=== PATIENT | female | born 1945 | race Caucasian/White ===

== ENCOUNTER 2023-11-17 20:28 | Emergency (ER) | payer MEDICARE, BC, SELFPAY ==
[2023-11-17 20:33] VITALS: BP 142/79; PULSE 89; RESP 20; TEMP 36.7; O2SAT 98; BMI 31.8
[2023-11-17] MEDS: BENZOCAINE 20 % SPRAY 1 EACH PO (20:55)
--- NOTE | 2023-11-17 21:24 | ED_ITS ---
HPI - Skin/Abscess/Foreign Bdy General Date Seen: 11/17/23 Chief complaint: Skin/Abscess/Foreign Body Stated complaint: Fishbone in throat, no diff breathing Time Seen by Provider: 11/17/23 20:31 Source: patient Mode of arrival: ambulatory Limitations: no limitations History of Present Illness HPI narrative: CC: Fish Bone In Throat pt. had some fish today. feels like something stuck on left side of throat. able to drink fluids. denies shortness of breath, fevers, n/v, diarrhea Patient is a very nice lady who presents here with the feeling of a foreign body in her left side of her throat, she was eating fish earlier this evening, and felt like something got stuck, she is able to swallow able to drink, did take some crackers earlier but the feeling process, she tells me it is not down lower, but feels almost as the left side of her throat. Related Data Home Medications Medication Instructions Recorded Confirmed aspirin 81 mg tablet,delayed 81 mg PO QDAY 09/09/23 11/17/23 release calcium carbonate 600 mg PO BID 09/09/23 11/17/23 glucosamine sulfate 500 mg tablet 500 mg PO QDAY 09/09/23 11/17/23 (Glucosamine) olmesartan 40 mg tablet 40 mg PO DAILY 09/09/23 11/17/23 rosuvastatin 10 mg tablet 10 mg PO QPM 09/09/23 11/17/23 Allergies Allergy/AdvReac Type Severity Reaction Status Date / Time amlodipine Allergy Mild Cough Verified 11/17/23 20:35 atenolol Allergy Mild Cough Verified 11/17/23 20:35 Review of Systems Status of ROS: Reports: 6 or more systems reviewed and unremarkable except as noted in History and below [facility] Medical History Elevated cholesterol ?E78.00 - Pure hypercholesterolemia, unspecified (ICD-10) Osteoarthritis of left knee ?M17.12 - Unilateral primary osteoarthritis, left knee (ICD-10) Skin cancer ?C44.90 - Unspecified malignant neoplasm of skin, unspecified (ICD-10) Depression ?F32.A - Depression, unspecified (ICD-10) Hypertension ?I10 - Essential (primary) hypertension (ICD-10) Surgical History History of cholecystectomy ?Z90.49 - Acquired absence of other specified parts of digestive tract (ICD- 10) History of phacoemulsification of cataract of right eye with intraocular lens implantation (04/14/20) ?Z98.41 - Cataract extraction status, right eye (ICD-10) ?Z96.1 - Presence of intraocular lens (ICD-10) History of phacoemulsification of cataract of left eye with intraocular lens implantation (04/28/20) ?Z98.42 - Cataract extraction status, left eye (ICD-10) ?Z96.1 - Presence of intraocular lens (ICD-10) Social History Smoking Status: Never smoker Second hand tobacco smoke exposure: No How often do you have a drink containing alcohol: never AUDIT-C Alcohol total score: 0 Non-prescribed substance use: denies use Exam Narrative: Exam Narrative: On examination, or throat is normal, scant tonsillar tissue is seen, little bit of redness, but not a lot there is definitely no blood, no obvious huge foreign body abscess or other issue she is able to speak to me in normal sentences. There is no lymphadenopathy anterior posterior chains, her neck extension is normal, I was able to use some Hurricaine spray sprayed her throat, and then using a tongue blade, grasping her tongue able to see in the left tonsillar lower bed, she had eat had a fishbone stuck in the tonsillar tissue. I then was able to grasp it with the pair of adsons, and removal was done. Const: Vital Signs, click to edit/add: Vital Signs - 24 hr 11/17/23 20:33 Temperature 98.0 F Pulse Rate [Right Pulse Oximeter] 89 Respiratory Rate 20 Blood Pressure [Ri ght Upper Arm] 142/79 H Pulse Oximetry 98 Oxygen Delivery Me thod Room Air Course Vital Signs Vital signs: Initial Vital Signs Temperature 98.0 F 11/17/23 20:33 Temperature Source Temporal Artery Scan 11/17/23 20:33 Pulse Rate 89 11/17/23 20:33 Respiratory Rate 20 11/17/23 20:33 Blood Pressure 142/79 H 11/17/23 20:33 Blood Pressure Mean 100 11/17/23 20:33 Blood Pressure Position Sitting 11/17/23 20:33 Pulse Oximetry 98 11/17/23 20:33 Oxygen Delivery Method Room Air 11/17/23 20:33 Vital Signs Temperature 98.0 F 11/17/23 20:33 Pulse Rate 89 11/17/23 20:33 Respiratory Rate 20 11/17/23 20:33 Blood Pressure 142/79 H 11/17/23 20:33 Pulse Oximetry 98 11/17/23 20:33 Oxygen Delivery Method Room Air 11/17/23 20:33 Temperature 98.0 F 11/17/23 20:33 Pulse Rate 89 11/17/23 20:33 Respiratory Rate 20 11/17/23 20:33 Blood Pressure 142/79 H 11/17/23 20:33 Pulse Oximetry 98 11/17/23 20:33 Oxygen Delivery Method Room Air 11/17/23 20:33 Medications Administered Medications: Generic Name Dose Route Start Last Admin Trade Name Freq PRN Reason Stop Dose Admin Benzocaine 1 each 11/17/23 20:53 11/17/23 20:55 Benzocaine 20 % [place] PO 11/17/23 20:54 1 each ONCE ONE Administration MDM - Skin/Abscess/Foreign Bdy MDM Narrative Medical decision making narrative: She was able to drink afterwards fluids and said she felt better older still was a little feeling. On her left tonsil I think this will persist but should go way, if it does not then I think follow-up with ENT. Discharge Plan Discharge Clinical Impression: Foreign body of tonsil Patient Disposition: Home, Self-Care Condition: Stable Additional Instructions: Home rest cold fluids overnight I think that the feeling of something in her tonsil will persist, but then should improved. It does not then I recommend either seeing ENT or coming back to the emergency room. Activity Level: Light activity Discharge Diet: Clear Liquid Prescriptions: No Action rosuvastatin 10 mg tablet 10 mg PO QPM olmesartan 40 mg tablet 40 mg PO DAILY glucosamine sulfate [Glucosamine] 500 mg tablet 500 mg PO QDAY Rx Instructions: administer with a meal calcium carbonate 600 mg calcium (1,500 mg) tablet 600 mg PO BID Rx Instructions: 2 tabs po daily aspirin 81 mg tablet,delayed release (DR/EC) 81 mg PO QDAY Follow Up/Referrals: Provider,Not a Local [Referring] - Alfredo Dumont MD [Staff Physician] - Stand Alone Forms: [facility] Medical Info Instructions
== END 2023-11-17 21:43 | disposition home or self-care (01) ==
LOC: ED 21:02
PROVIDERS: Emergency Provider Family Medicine; PCP Physician Assistant Medical
DX: T18.8XXA Foreign body in other parts of alimentary tract, initial encounter (principal)
CPT/HCPCS: 99282; 99283; A9270

== ENCOUNTER 2024-11-16 10:49 | Outpatient (CLI) | payer MEDICARE, BC, SELFPAY | END 2024-11-16 10:50 | disposition home or self-care (01) | LOC: NFLDUCREF 10:49 | PROVIDERS: PCP Physician Assistant Medical; Visit Provider Physician Assistant | DX: M10.9 Gout, unspecified (principal); R79.89 Other specified abnormal findings of blood chemistry | CPT/HCPCS: 84550 ==

== ENCOUNTER 2025-01-28 02:15 | Inpatient (IN) | payer MEDICARE, BC, SELFPAY ==
[2025-01-28] VITALS (25 sets, daily range): BP systolic 101–158; BP diastolic 59–82; PULSE 60–88; RESP 16–18; TEMP 36.5–36.7; O2SAT 93–99; BMI 32.5; BMI 33.1; BMI 33.2
--- OUTSIDE RECORDS SUMMARY | 2025-01-28 02:17 | XMS_ITS | Clinical Summary ---
Author Organization [employer] [facility] Address [address] [place] [id number] Care Team Providers Care Adult Basic Education Manager Name Role Phone Tamiko Mejia Primary Care Provider Allergies Active Allergy Reactions Criticality Noted Date Comments Atenolol Edema 06/14/2015 Amlodipine Edema 06/14/2015 Medications Glucosamine &[id number] [id number] mg tab Take 1 tablet by mouth once daily. 0 5 Active aspirin (ECOTRIN) 81 mg enteric coated tablet Take 1 tablet by mouth once daily with a meal. 0 0 Active famotidine (PEPCID) 20 mg tablet Take 1 Tablet (20 mg) by mouth 2 times daily. 0 2 Active calcium with vitamin D3 (Calcium+D) tabletIndications: Stage 3a chronic kidney disease (HC) Take 1 Tablet by mouth two times daily with meals. 0 2 Active Prednicarbate 0.1 % ointIndications:Va ginal itching Apply topically to affected area(s) 2 times daily if needed (itching). 60 g 2 4 Active triamcinolone (ARISTOCORT; KENALOG) 0.1 % creamIndications:V aginal itching APPLY TOPICALLY TO AFFECTED AREA(S) THREE TIMES DAILY. 80 g 4 Active olmesartan 40 mg tabletIndications: Hypertension, unspecified type Take 1 Tablet (40 mg) by mouth once daily. 90 Tablet 3 5 Active rosuvastatin 10 mg tabletIndications: Hyperlipidemia, unspecified hyperlipidemia type Take 1 Tablet (10 mg) by mouth at bedtime. 90 Tablet 3 5 Active Active Problems Problem Noted Date Diagnosed Date Malignant melanoma of skin of trunk 07/18/2021 Essential hypertension 12/20/2020 Gastroesophageal reflux disease without esophagi tis 12/20/2020 Diverticulitis of colon with perforation 020 Basal cell carcinoma (BCC) of left side of nose 07/12/2019 Resolved Problems Problem Noted Date Diagnosed Date Resolved Date Stage 3a chronic kidney disease 12/20/2020 10/27/2024 Encounters Date Type Department Care Team Description 01/24/2025 Refill [facility] [place] [address] [place] [address] Tamiko Mejia PA Refill Request (Triamcinolone) from Last 3 Months Immunizations Immunization Administration Dates Next Due COVID-19 vaccine (Moderna 100mcg/0.5mL) PF, MDV 10/05/2020,09/07/2020 Influenza RIV4 (Age 18+ Year s) PRESERV FREE 05/14/2019 Influenza Virus, Unspecified 06/01/2018 Influenza, High-dose Inactivated 020,06/01/2018,04/15/2017,04/17 Influenza, High-dose Quadriv alent Inactivated 05/06/2022,04/10/2021,03/31/2020 Influenza, IIV3 (Age 6-35 mos) 04/28/2013 Influenza, IIV4 04/20/2014 Influenza, IIV4 (=>6mos) MDV 04/07/2015 Pneumococcal Poly,23-Valent (Pneumovax) 11/08/2010 Pneumococcal conj 13-Valent (Prevnar 13) 02/16/2019,12/12/2018 RSV, Recombinant ADJ Reconst ituted (Arexvy 120MCG/0.5mL) 07/24/2023 Tdap 02/16/2019,12/12/2018 Zoster (Shingrix-RZV, recombinant) 11/30/2018, Zoster (Zostavax-ZVL, live) 06/30/2012 Family History Medical History Relation Name Comments Brain Aneurysm Brother 1 Jaswant ICH Skin cancer Brother 2 Petey Alzheimer's disease Brother 3 Amos Lung cancer Brother 4 Ray smoker Stroke Brother 5 Mak Heart Disease Father Stroke Father Cancer-breast Maternal Aunt Other Mother hip fracture x 2 Cancer-breast Other nieces x 3 Cataracts Sister 1 Stroke Sister 1 Lung cancer Sister 2 smoker Anesthesia Malignant Hyperthermia No Family History Relation Name Status Comments Brother 1 Jaswant Alive Brother 2 Petey Alive Brother 3 Amos Brother 4 Ray Brother 5 Mak Father (Age 70) Maternal Aunt Mother (Age 94) Other Sister 1 Alive Sister 2 Social History Tobacco Use Types Packs/Day Years Used Date Smoking Tobacco: Never Smokeless Tobacco: Never Tobacco Cessation:Counseling Given: Yes Alcohol Use Standard Drinks/Week Comments Not Currently 0 (1 standard drink = 0.6 oz pur e alcohol) maybe 6 drinks per year PHQ-2 Answer Date Recorded PHQ-2 TOTAL SCORE 0 10/27/2024 Social Connections Answer Date Recorded Do you often feel lonely or isolated from those around you? 0 10/27/2024 Financial Resource Strain Answer Date R ecorded Difficulty of Paying Living Expenses 3 10/27/2024 Difficulty of Paying Living Expenses Not on file 10/27/2024 Food Insecurity Answer Date Recorded Do you worry your food will run out before you are able to buy more? 1 10/27/2024 Transportation Needs Answer Date Record ed Does lack of transportation keep you from medica l appointments? 1 10/27/2024 Does lack of transportation keep you from work, meetings or getting things that you need? 1 10/27/2024 Housing Stability Answer Date Recorded What is your housing situation today? 1 10/27/2024 Utilities Answer Date Recorded Do you have trouble paying f or utilities (for example, heat, electricity, water, phone)? 1 10/27/2024 Comments No Sex and Gender Information Value Date Recorded Sex Assigned at Not on file Legal Sex Female 6:21 AM TRIMMING MACHINE SET UP OPERATOR Gender Identity Not on file Sexual Orientation Not on file Obstetrics History Last Filed Vital Signs Vital Sign Reading Time Taken Comments Blood Pressure 136/80 10/27/2024 9:02 AM CDT Pulse 88 10/27/2024 9:02 AM CDT Temperature 36.6 C (97.9 F) 03/11/2022 9:28 AM CDT Respiratory Rate 18 06/26/2020 9:37 AM TRIMMING MACHINE SET UP OPERATOR Oxygen Saturation 97% 08/12/2023 1:59 PM TRIMMING MACHINE SET UP OPERATOR Inhaled Oxygen Concentration - - Weight 79.3 kg (174 lb 12.8 oz) 10/27/2024 9:02 AM CDT Height 154.9 cm (5' 1) 10/27/2024 9:02 AM CDT Body Mass Index 33.03 10/27/2024 9:02 AM CDT Plan of Treatment Health Maintenance Due Date Last Done Comments COVID-19 vaccine series ( season) 2024 05/17/2024, 05/14/2023, 05/01/2022, Additional history exists Influenza Vaccine (#1) 2025 , 05/14/2019, 06/01/2018, Additional history exists BMI (ht and wt on same day) for age 18+ 10/27/2025 10/27/2024, 10/27/2023, 10/23/2022, Additional history exists Depression screening for age 12+ 10/27/2025 10/27/2024, 10/26/2024, 10/27/2023, Additional history exists Medicare Wellness for age 65+ 10/28/2025 10/27/2024, 10/27/2023, 10/23/2022, Additional history exists Tetanus booster 02/16/2029 02/16/2019, 12/12/2018 Zoster (shingles) series for age 50+ Completed 11/30/2018, 08/26/2018, 06/30/2012 Pneumococcal series for age 50+ Completed 02/16/2019, 12/12/2018, 11/08/2010 DEXA/DXA scan for age 65+ Completed 07/12/2019 RSV vaccine for adults or Completed 07/24/2023 Hepatitis B series for 19+ Aged Out N o longer eligible based on patient's age to complete this topic Procedures Procedure Name Priority Date/Time Associated Diagnosis Comments XR DXA BONE DENSITY 2 SITES AXIAL Routine 07/12/2019 2:25 PM TRIMMING MACHINE SET UP OPERATOR Menopause Menopausal symptom from Last 3 Months or Most Recently Relevant to Health Maintenance Results * (ABNORMAL) XR DXA BONE DENSITY 2 SITES AXIAL [30414.1] (07/12/2019 2:25 PM TRIMMING MACHINE SET UP OPERATOR) Anatomical Region Laterality Modality Spine, HIPS, HIPL, HIPR Other Narrative 07/16/2019 11:00 AM TRIMMING MACHINE SET UP OPERATOR Please see scanned document for results of this study. us Tamiko JIMENEZ DEXA Final R esult from Last 3 Months or Most Recently Relevant to Health Maintenance Insurance [employer] BLUE MR PB ONLY Care Teams Adult Basic Education Manager Relationship Specialty Start Date End Date Tamiko Mejia PA [address] [place] [address] PCP - General Family Practice 03/30/15
--- OUTSIDE RECORDS SUMMARY | 2025-01-28 02:17 | XMS_ITS | Clinical Summary ---
Author Organization [facility] Address [address] [place] [address] Care Team Providers Care Welder Shielded Metal Arc Name Role Phone Elsewhere, Pcp Primary Care Provider Unavailabl e Source Comments Patient records contain information from all sites at [facility]. For routine questions regarding patient records, call [phone] during business hours, M-F 8:00 AM - 5:00 PM Central Time. Record requests for emergency care only can be directed to [phone] at any time.[facility] Allergies Active Allergy Reactions Criticality Noted Date Comments Amlodipine Cough Low 11/17/2023 Atenolol Cough Low 11/17/2023 Medications glucosamine-cho ezsylh-dd-[id number] [id number] mg tablet Take 1 tablet by mouth 2 (two) times a day. 5 Active prednicarbate 0.1 % ointment Apply 1 application topically every morning. Vaginal itching 1 9 Active rosuvastatin (CRESTOR) 10 mg tablet Take 1 tablet (10 mg total) by mouth daily. 30 tablet 11 0 Active multivitamin capsule Take 1 capsule by mouth daily. Active calcium carbonate-vitam in D3 1,250 mg (500 mg calcium)-5 mcg (200 Unit) per tablet Take 1 tablet by mouth 2 (two) times a day with meals. OTC calcium supplement Active famotidine (PEPCID) 20 mg tablet Take 20 mg by mouth every morning. 2 Active olmesartan (BENICAR) 40 mg tablet Take 40 mg by mouth daily. 2 Active aspirin [address] tablet Take 1 tablet (81 mg total) by mouth daily. Take with food. Active acetaminophen (TYLENOL) 500 mg tablet Take 2 tablets (1,000 mg total) by mouth every 6 (six) hours. Active methocarbamoL (ROBAXIN) 750 mg tablet Take 1 tablet (750 mg total) by mouth every 6 (six) hours as needed for muscle spasms. 30 tablet 05/21/2022 2:06 PM QUALITY CONTROL EXPERT 2 Active Additional Information Patient not taking.Reported on 06/14/2024 oxyCODONE (ROXICODONE) 5 mg immediate release tabletIndicatio ns:Acute Pain Exception Take 1 tablet (5 mg total) by mouth every 4 (four) hours as needed for moderate pain or score 4-6 of 10 (if other analgesics fail) 25 tablet 05/21/2022 2:06 PM QUALITY CONTROL EXPERT 2 Active Additional Information Patient not taking.Reported on 06/14/2024 polyethylene glycol (MIRALAX) 17 gram powder packetIndicatio ns:constipation Take 1 packet (17 g total) by mouth daily Indications: constipation. Dissolve each 17 g dose in 240 mLs (8 ounces) of beverage. 14 packet 2 Active Additional Information Patient not taking.Reported on 06/14/2024 Active Problems Problem Noted Date Diagnosed Date Spinal Stenosis Lumbosacral Region 05/21/2022 Loss Hearing Bilateral 05/14/2022 Obesity Body Mass Index 30-39.9 Adult 05/14/2022 Hyperlipidemia 05/14/2022 Personal History Of Malignant Melanoma Of Skin 1 08/28/2020 Spondylosis Lumbar Without Myelopathy 01/16/2021 Gastroesophageal Reflux Disease Without Esophagi tis 12/20/2020 Hypertensive Chronic Kidney Disease With Stage 1 Through Stage 4 Chronic Kidney Disease, Or Unspecified Chronic Kidney Disease 12/20/2020 Cancer Skin Basal Cell Personal History 07/12/20 19 Resolved Problems Problem Noted Date Diagnosed Date Resolved Date Pain Low Back Mechanical 01/16/202107/2021 Hypertension Essential Primary 12/20/2020 05/14/2022 Diverticulitis Of Large Inte kapil With Perforation And Abscess Without Bleeding 04/06/2020 05/14/2022 Family History Medical History Relation Name Comments Skin cancer Brother 1 Jaswant Skin cancer Brother 2 Mak Skin cancer Brother 3 Petey Relation Name Status Comments Brother 1 Jaswant Alive Brother 2 Mak Brother 3 Petey Alive Social History Tobacco Use Types Packs/Day Years Used Date Smoking Tobacco: Never Smokeless Tobacco: Never Tobacco Cessation:Counseling Given: Not Answered Alcohol Use Standard Drinks/Week Comments Not Currently 0 (1 standard drink = 0.6 oz pur e alcohol) less than monthly Comments No Sex and Gender Information Value Date Recorded Sex Assigned at Not on file Legal Sex Female 11:32 PM QUALITY CONTROL EXPERT Gender Identity Not on file Sexual Orientation Not on file Last Filed Vital Signs Vital Sign Reading Time Taken Comments Blood Pressure 97/71 05/21/2022 11:10 AM QUALITY CONTROL EXPERT Pulse 68 05/21/2022 11:10 AM QUALITY CONTROL EXPERT Temperature 36.5 C (97.7 F) 05/21/2022 11:10 AM QUALITY CONTROL EXPERT Respiratory Rate 16 05/21/2022 12:4 4 PM QUALITY CONTROL EXPERT Oxygen Saturation 97% 05/21/2022 11: 10 AM QUALITY CONTROL EXPERT Inhaled Oxygen Concentration - - Weight 83.4 kg (183 lb 13.8 oz) 05/20/2022 6:30 AM QUALITY CONTROL EXPERT Height 157.5 cm (5' 2) 05/20/2022 6:30 AM QUALITY CONTROL EXPERT Body Mass Index 33.63 05/20/2022 6:30 AM QUALITY CONTROL EXPERT Plan of Treatment Health Maintenance Due Date Last Done Comments Office Visit for Blood Pressure Check / Re-check 1943 Depression Screening (Annual PHQ-2) 07/14/2024 Fall Risk Screen (Annual) 07/14/2024 Creatinine Level (Kidney Function Test) 10/26/2024 10/27/2023, 07/26/2022, 05/21/2022, Additional history exists Potassium Level 10/26/2024 10/27/2023, 07/14, 05/21/2022, Additional history exists Sodium Level 10/26/2024 10/27/2023, 07/14, 05/21/2022, Additional history exists COVID-19 Vaccine ( season) 2024 05/17/2024, 05/14/2023, 05/01/2022, Additional history exists Influenza Vaccine (#1) 2025 , 04/09/2023, 05/06/2022, Additional history exists DTaP,Tdap,and Td Vaccines (3 - Td or Tdap) 02/16/2029 02/16/2019, 12/12/2018 Zoster Vaccines Completed 12/11/2018, 05, 08/26/2018, Additional history exists Pneumococcal vaccine (50+ years) Completed 02/16/2019, 12/12/2018, 11/08/2010 RSV vaccine - (32-36 weeks) or 60+ years Completed 07/24/2023 IPV Vaccines Aged Out No longer eligi ble based on patient's age to complete this topic Procedures Procedure Name Priority Date/Time Associated Diagnosis Comments BASIC METABOLIC PANEL, S/P Timed 05/21/2022 4:59 AM QUALITY CONTROL EXPERT from Last 3 Months or Most Recently Relevant to Health Maintenance Results * (ABNORMAL) Basic Metabolic Panel (05/21/2022 4:59 AM QUALITY CONTROL EXPERT) Potassium, S 5.6(H) 3.6 - 5.2 mmol/L 05/21/2022 6:11 AM QUALITY CONTROL EXPERT DTL Sodium, S 140 135 - 145 mmol/L 05/21/2022 6:11 AM QUALITY CONTROL EXPERT DTL Chloride, S 106 98 - 107 mmol/L 05/21/2022 6:11 AM QUALITY CONTROL EXPERT DTL Bicarbonate, S 22 22 - 29 mmol/L 05/21/2022 6:11 AM QUALITY CONTROL EXPERT DTL Anion Gap 12 7 - 15 05/21/2022 6:11 AM QUALITY CONTROL EXPERT DTL BUN (Blood Urea Nitrogen), S 19 6 - 21 mg/dL 05/21/2022 6:11 AM QUALITY CONTROL EXPERT DTL Creatinine 1.00 0.59 - 1.04 mg/dL 05/21/2022 6:11 AM QUALITY CONTROL EXPERT DTL Estimated GFR (eGFR) 57(L) >=60 mL/min/BSA 05/21/2022 6:11 AM QUALITY CONTROL EXPERT DTL Comment: Estimated GFR calculated using the 2020 CKD_EPI creatinine equation. Calcium, Total, S 8.9 8.8 - 10.2 mg/dL 05/21/2022 6:11 AM QUALITY CONTROL EXPERT DTL Glucose, S 113 70 - 140 mg/dL 05/21/2022 6:11 AM QUALITY CONTROL EXPERT DTL Blood (Blood, Venous) 05/21/2022 4:59 AM QUALITY CONTROL EXPERT 05/21/2022 5:55 AM QUALITY CONTROL EXPERT Magdaleno Horton M.D. LAB BLOOD ADD-ON Final Resu lt [facility] [address] [place] [address], [facility] DTL [facility] [address] [place] [address] from Last 3 Months or Most Recently Relevant to Health Maintenance Insurance [facility]IC[facility] Advance Directives For more information, please contact: [phone] * Full Code (Latest Code Status on File) Date Activated Date Inactivated Comments 05/20/2022 1:26 PM 05/21/2022 3:47 PM Question Answer Comments Full Code: Not Discussed Due to: Patient not available * Full Code Date Activated Date Inactivated Comments 05/20/2022 6:18 AM 05/20/2022 1:26 PM Question Answer Comments Full Code: Not Discussed Due to: Patient not available Care Teams Welder Shielded Metal Arc Relationship Specialty Start Date End Date Elsewhere, Pcp PCP - General Internal Medicine 07/10/21
--- NOTE | 2025-01-28 02:37 | CRLHL7_ITS ---
For Patients: As a result of the 21st Century Cures Act, medical imaging exams and procedure reports are released immediately into your electronic medical record. You may view this report before your referring provider. If you have questions, please contact your health care provider. INDICATION: Mid abdominal pain, hyperactive bowel sounds. TECHNIQUE: CT of the abdomen and pelvis acquired with 84 cc Isovue 370 IV contrast. Coronal and sagittal reconstructions. COMPARISON: None. FINDINGS: Lower chest: Bibasilar atelectasis or scarring. Few small noncalcified pulmonary nodules in the right middle lobe measuring 3-4 mm (for example series 3 image 2). Only one of these nodules is visualized on the prior exam. Heart size mildly prominent. Liver: Mild diffuse hepatic steatosis. No suspicious masses. Gallbladder and bile ducts: Cholecystectomy. No biliary dilation. Spleen: Unremarkable. Pancreas: Fatty infiltration of the pancreatic head. There may be subtle fat stranding about the pancreatic tail. No dilation of the main pancreatic duct. Adrenal glands: Unremarkable. Kidneys, Ureters, and Bladder: Symmetric enhancement. Small right renal cyst. No hydronephrosis. No obstructing urinary calculi. Underdistended urinary bladder. Reproductive organs: Unremarkable. GI tract/Peritoneum: Partially visualized large hiatal hernia containing the majority of the stomach in the left lower thorax similar to prior exam. There is wall thickening of the gastric antrum/pylorus which may be inflammatory. Trace amount of free fluid in the right retrocrural region. No small bowel dilation. Moderate stool burden. Colonic diverticulosis without evidence of diverticulitis. Negative appendix. No intraperitoneal free air. Vasculature: Abdominal aorta is normal in caliber. Aortoiliac vascular calcifications. Mesenteric arteries appear patent. There is new swirling of the central mesenteric vasculature without current evidence of bowel obstruction or vascular occlusion. Lymph nodes: No lymphadenopathy. Abdominal Wall: Unremarkable. Bones: Left convex lumbar curve. Degenerative changes of the spine. Lower lumbar laminectomy changes. IMPRESSION: 1. Large hiatal hernia containing the majority of the stomach in the left lower thorax similar to prior exam. Wall thickening of the gastric antrum/pylorus may be inflammatory. There is a trace amount of fluid in the retrocrural region suggesting inflammation. This could be further evaluated with endoscopy. 2. New swirling of the central mesenteric vasculature without current evidence of bowel obstruction or vascular occlusion. 3. Questionable subtle fat stranding about the pancreatic tail. Correlate with serum amylase and lipase to exclude pancreatitis. 4. Noncalcified pulmonary nodules in the right middle lobe measuring 3-4 mm. Follow-up per Fleischner society guidelines. Please note that all CT scans at this facility use dose modulation, iterative reconstruction, and/or weight-based dosing when appropriate to reduce radiation dose to as low as reasonably achievable. Dictated by Antonia Sneed MD @ 01/28/2025 4:10:57 AM (Electronically Signed)
--- NOTE | 2025-01-28 02:43 | ED.GENADULT ---
HPI - General Adult General Chief complaint: Abdominal Pain Stated complaint: Vomiting, stomach pain Time Seen by Provider: 01/28/25 02:27 Source: patient Mode of arrival: ambulatory Limitations: no limitations History of Present Illness HPI narrative: 80-year-old female presents with 7 hours of nausea vomiting and diffuse mid abdominal pain. No alcohol use, no history of pancreatitis. Has had 1 prior abdominal surgery, an uncomplicated cholecystectomy 15 years ago. Reports that she has had diverticulitis in the past and says that the pain feels similar but just a little different location. She has not had a colonoscopy in over 10 years. No bloody stools, no fever. No injury or trauma. Has not tried any interventions prior to coming to ED as she did not think she could hold down any medications that may have been helpful for her. No warning signs of symptoms coming on, did start rather suddenly. Pain does not radiate. No back pain, no dysuria. No blood in her vomit. Not anticoagulated. Past medical history notable for hypertension, hyperlipidemia. Reports that her home medications are almost are bain and rosuvastatin. Also takes a baby aspirin daily. Nonsmoker. No alcohol in the last year. ROS is notable for the GI symptoms as above only, otherwise denies times 12 systems. Related Data Home Medications ?Medication ?Instructions ?Recorded ?Confirmed aspirin 81 mg tablet,delayed 81 mg PO DAILY 09/09/23 01/28/25 release olmesartan 40 mg tablet 40 mg PO DAILY 09/09/23 01/28/25 rosuvastatin 10 mg tablet 10 mg PO HS 09/09/23 01/28/25 famotidine 20 mg tablet (Acid-Pep) 20 mg PO BID 01/28/25 01/28/25 Allergies Allergy/AdvReac Type Severity Reaction Status Date / Time amlodipine Allergy Mild Cough Verified 11/20/24 10:36 atenolol Allergy Mild Cough Verified 11/20/24 10:36 [facility] Medical History Elevated cholesterol ?E78.00 - Pure hypercholesterolemia, unspecified (ICD-10) Osteoarthritis of left knee ?M17.12 - Unilateral primary osteoarthritis, left knee (ICD-10) Skin cancer ?C44.90 - Unspecified malignant neoplasm of skin, unspecified (ICD-10) Depression ?F32.A - Depression, unspecified (ICD-10) Hypertension ?I10 - Essential (primary) hypertension (ICD-10) Surgical History History of cholecystectomy ?Z90.49 - Acquired absence of other specified parts of digestive tract (ICD-10) History of phacoemulsification of cataract of right eye with intraocular lens implantation (04/14/20) ?Z98.41 - Cataract extraction status, right eye (ICD-10) ?Z96.1 - Presence of intraocular lens (ICD-10) History of phacoemulsification of cataract of left eye with intraocular lens implantation (04/28/20) ?Z98.42 - Cataract extraction status, left eye (ICD-10) ?Z96.1 - Presence of intraocular lens (ICD-10) Social History Smoking Status: Never smoker Second hand tobacco smoke exposure: No How often do you have a drink containing alcohol: never AUDIT-C Alcohol total score: 0 Non-prescribed substance use: denies use Exam Const: Vital Signs, click to edit/add: Vital Signs - 24 hr 01/28/25 02:21 01/28/25 02:59 01/28/25 03:33 Temperature 97.9 F Pulse Rate 63 62 Pulse Rate [Pulse Oximeter] 88 Respiratory Rate 16 18 18 Blood Pressure 149/76 H 139/72 Blood Pressure [Ri ght Upper Arm] 157/82 H Pulse Oximetry 97 96 94 Oxygen Delivery Me thod Room Air 01/28/25 04:02 01/28/25 04:33 01/28/25 05:02 Temperature 98.0 F Pulse Rate 65 65 71 Pulse Rate [Pulse Oximeter] Respiratory Rate 18 18 18 Blood Pressure 158/78 H 151/76 H 144/78 H Blood Pressure [Ri ght Upper Arm] Pulse Oximetry 93 94 95 Oxygen Delivery Me thod 01/28/25 06:02 01/28/25 06:32 01/28/25 06:39 Temperature 98.0 F Pulse Rate 68 66 Pulse Rate [Pulse Oximeter] Respiratory Rate 18 18 Blood Pressure 131/70 125/64 Blood Pressure [Ri ght Upper Arm] Pulse Oximetry 99 95 95 Oxygen Delivery Me thod Documenting provider has reviewed patient's vital signs: yes Common normals: no apparent distress and alert General appearance: cooperative and well kempt HENMT: Common normals: normocephalic, moist oral mucous membranes and oropharynx normal Head and scalp: normocephalic Face and sinus: normal facial exam Mouth: oral and palatal mucosa normal Throat: posterior oropharynx normal Eye: Common normals: conjunctivae normal General eye: normal appearance of both eyes Conjunctiva: conjunctiva(e) normal Neck & C-Spine: Common normals: full ROM and no lymphadenopathy General: normal visual inspection Resp: Common normals: normal respiratory effort and no use of accessory muscles Effort & inspection: able to speak in complete sentences Cardio: Common normals: regular rate, regular rhythm, S1 normal heart sound and S2 normal heart sound Rate: regular rate Rhythm: regular rhythm Heart sounds: S1 normal and S2 normal GI: Other: Abdomen seems distended with hyperactive bowel sounds. Mildly tender to the epigastrium, mid abdomen and right upper quadrant. No rebound tenderness or guarding. No obvious mass, liver and spleen are not seem enlarged. A bit difficult exam due to distention. : Common normals: no CVA tenderness Bladder/kidney exam: no CVA tenderness Back & Pelvis: Common normals: no CVA tenderness Extremity: Common normals: normal to inspection, full ROM and normal capillary refill Neuro: Common normals: moves all extremities Sensorium/orientation: alert Speech: speech normal Motor exam: strength 5/5 throughout Psych: Appearance: well kempt Attitude: engaged Activity/motor behavior: appropriate eye contact Insight: insight good Judgement: judgment good Skin: Common normals: no rashes or lesions noted General skin exam: no rashes or lesions noted Course Course ED Course: 80-year-old female with abdominal distension, vomiting and abdominal pain suspicious for bowel obstruction. Cannot exclude ischemic process, gastroenteritis, volvulus, internal hernia, pancreatitis, diverticulitis, gynecological pathology, amongst others. Will place IV, give 4 mg of Zofran, 1 L of normal saline, typical GI labs and obtain CT of the abdomen and pelvis with contrast. Await findings. Reevaluation(s) Time of Reevaluation #1: 06:02 Reevaluation #1: Apologize to patient for significant 3 hour delay in her lipase level reporting. Is still too high to read on our analyzer but we were not informed that it was elevated. Elevated liver enzymes, all consistent with an unusual presentation of severe pancreatitis. She is not showing any signs of kidney damage, abnormal vital signs, fever or other dangerous criteria. Counseled patient on management. She has been started on IV fluids, she has declined pain medicine for now but is finding that anti nausea medicine helpful. I think patient could benefit from further workup including an MRCP and I have recommended that she come into the hospital to facilitate this. Patient will need trending of her pancreatic and liver enzymes and if not improving, further GI or General surgery consultation. Time of Reevaluation #2: 07:12 Reevaluation #2: Patient has been accepted for admission. Maintenance fluids are running, hospitalist will order further workup and testing. Vital Signs Vital signs: Initial Vital Signs Temperature 97.9 F 01/28/25 02:21 Temperature Source Temporal Artery Scan 01/28/25 02:21 Pulse Rate 88 01/28/25 02:21 Respiratory Rate 16 01/28/25 02:21 Blood Pressure 157/82 H 01/28/25 02:21 Blood Pressure Mean 107 H 01/28/25 02:21 Blood Pressure Position Sitting 01/28/25 02:21 Pulse Oximetry 97 01/28/25 02:21 Oxygen Delivery Method Room Air 01/28/25 02:21 Vital Signs Temperature 97.9 F 01/28/25 02:21 Pulse Rate 88 01/28/25 02:21 Respiratory Rate 16 01/28/25 02:21 Blood Pressure 157/82 H 01/28/25 02:21 Pulse Oximetry 97 01/28/25 02:21 Oxygen Delivery Method Room Air 01/28/25 02:21 Temperature 98.0 F 01/28/25 06:02 Pulse Rate 66 01/28/25 06:32 Respiratory Rate 18 01/28/25 06:32 Blood Pressure 125/64 01/28/25 06:32 Pulse Oximetry 95 01/28/25 06:39 Oxygen Delivery Method Room Air 01/28/25 02:21 Medications Administered Medications: Generic Name Dose Route Start Last Admin Trade Name Freq PRN Reason Stop Dose Admin Lactated Ringer's 1,000 mls @ 125 mls/hr 01/28/25 06:05 01/28/25 06:20 Lactated Ringers 1000 Ml IV 125 mls/hr .Q8H TOYA Administration Discontinued Medications Generic Name Dose Route Start Last Admin Trade Name Anjelica PRN Reason Stop Dose Admin Sodium Chloride 1,000 mls @ 1,000 mls/hr 01/28/25 02:50 01/28/25 04:02 0.9 % Sodium Chloride 1000 Ml IV 01/28/25 03:49 Infused .Q1H TOYA Infusion Ondansetron HCl 4 mg 01/28/25 02:50 01/28/25 02:58 Ondansetron 2 Mg/Ml Inj IVP 01/28/25 02:51 4 mg ONCE ONE Administration Medical Decision Making Lab Data Lab results reviewed: Yes I reviewed the patient's lab results Lab results narrative: Lipase is too high for our analyzer to read. technical support manager did not keep me in the loop about this and multiple calls were required with a 3 hour delay in lab reporting which coursed did affect patient care and unfortunately the acuity of many other patients I had in the ED at the time. Elevated liver enzymes likely related to pancreatitis as well. Patient does not have a gallbladder. Labs: Lab Results 01/28/25 01/28/25 01/28/25 Range/Units 02:40 02:48 06:00 WBC 7.80 (4.50-11.00) K/uL RBC 5.48 H (4.00-5.20) m/uL Hgb 14.9 (12.0-16.0) gm/dL Hct 45.2 (33.0-51.0) % MCV 83 (80-100) fL MCH 27 (26-34) pg MCHC 33 (32-36) gm/dL RDW Coeff of Priya 14.0 (11.5-15.5) % Plt Count 243 (140-440) K/uL Neut % (Auto) 83.0 H (42.0-72.0) % Lymph % (Auto) 13.7 L (20-44) % Oliver % (Auto) 2.2 (0.0-11.0) % Eos % (Auto) 0.3 (0.0-7.0) % Baso % (Auto) 0.4 (0.0-3.0) % Neut # (Auto) 6.50 (1.7-7.0) K/uL Lymph # (Auto) 1.10 (0.90-2.90) K/uL Oliver # (Auto) 0.20 (0.00-0.90) K/UL Eos # (Auto) 0.02 (0.00-0.50) K/uL Baso # (Auto) 0.03 (0.00-0.30) K/uL Abs Immat Gran (auto) 0.03 (0.00-0.30) K/uL Imm/Tot Granulo (auto) 0.4 % Sodium 140 (135-149) mmol/L Potassium 4.6 (3.6-5.1) mmol/L Chloride 108 (96-114) mmol/L Carbon Dioxide 23 (20-32) mmol/L Anion Gap 9 (7-15) mEq/L BUN 19 (7-30) mg/dL Creatinine 0.9 (0.5-1.5) mg/dL Estimated Creat Clear 32.73 Estimated GFR 64 ml/min Glucose 135 H (60-115) mg/dL Lactate 1.4 (0.5-1.9) mmol/L Calcium 9.8 (8.4-10.6) mg/dL Total Bilirubin 0.8 (0.1-1.5) mg/dL AST 939 H (12-35) U/L ALT 841 H (4-35) U/L Alkaline Phosphatase 201 H (40-150) U/L C-Reactive Protein 0.5 (0.5-1.0) mg/dL Total Protein 6.8 (6.0-8.3) g/dL Albumin 4.3 (3.3-5.0) g/dL Triglycerides 69 (40-149) mg/dL Cholesterol 168 (90-199) mg/dL LDL Cholesterol, Calc 96 (<100) mg/dL HDL Cholesterol 58 (>=50) mg/dL Urine Color Yellow (Yellow) Urine Appearance Clear (Clear) Urine pH 6.5 (5.0-8.5) Ur Specific Lorraine 1.020 (1.000-1.030) Urine Protein 2+ A (Negative) Urine Glucose (UA) Negative (Negative) Urine Ketones 2+ A (Negative) Urine Blood Trace-lysed A (Negative) Urine Nitrite Negative (Negative) Urine Bilirubin 1+ A (Negative) Urine Urobilinogen 2.0 A (0.2-1.0) Ur Leukocyte Esterase Trace A (Negative) Urine RBC 0-2 (0-2) Urine WBC 0-2 (0-5) Ur Squamous Epith Cells Moderate A (None-Few) Amorphous Sediment Many A (None) Urine Bacteria Few A (None) Lab Acknowledgement Test Added POC Creatinine 1.0 (0.6-1.3) mg/dl POC Troponin I 0.00 L (0.01-0.04) ng/ml Imaging Data CT scan - abdomen: Attestation: I have reviewed the pertinent imaging results. My impression: Large hiatal hernia with thickening of the lining of the stomach, large pancreas, uncertain etiology no obvious mass. Radiologist's impression: IMPRESSION: 1. Large hiatal hernia containing the majority of the stomach in the left lower thorax similar to prior exam. Wall thickening of the gastric antrum/pylorus may be inflammatory. There is a trace amount of fluid in the retrocrural region suggesting inflammation. This could be further evaluated with endoscopy. 2. New swirling of the central mesenteric vasculature without current evidence of bowel obstruction or vascular occlusion. 3. Questionable subtle fat stranding about the pancreatic tail. Correlate with serum amylase and lipase to exclude pancreatitis. 4. Noncalcified pulmonary nodules in the right middle lobe measuring 3-4 mm. Follow-up per Fleischner society guidelines. Please note that all CT scans at this facility use dose modulation, iterative reconstruction, and/or weight-based dosing when appropriate to reduce radiation dose to as low as reasonably achievable. Dictated by Antonia Sneed MD @ 01/28/2025 4:10:57 AM ECG Data Attestation: I personally reviewed and interpreted this ECG as follows: Prior ECG tracings: not available for review Interpretation: Normal sinus rhythm with a rate of 63. Normal intervals and axis. Some subtle anterior changes that are not diagnostic of ischemia. No significant ST or T-wave abnormalities. Normal EKG. Discharge Plan Discharge Clinical Impression: Acute pancreatitis Patient Disposition: Admitted As Inpatient Activity Level: No Restrictions Discharge Diet: Regular
[2025-01-28 02:51] LABS: Lactate Sepsis w/Reflex* 1.4 mmol/L (0.5-1.9)
[2025-01-28 02:52] LABS: Hematocrit 45.2 % (33.0-51.0); Hemoglobin* 14.9 gm/dL (12.0-16.0); Immature Granulocytes Abs Auto 0.03 K/uL (0.00-0.30); Immature Granulocytes Pct Auto 0.4 %; Mean Corpuscular HGB Conc 33 gm/dL (32-36); Mean Corpuscular Hemoglobin 27 pg (26-34); Mean Corpuscular Volume 83 fL (80-100); RDW Coefficient of Variation % 14.0 % (11.5-15.5); Red Blood Count 5.48 m/uL (4.00-5.20); White Blood Count* 7.80 K/uL (4.50-11.00)
[2025-01-28 02:53] LABS: Appearance Urine Clear (Clear)
[2025-01-28] MEDS: ONDANSETRON 2 MG/ML inj 4 MG IVP (02:58)
[2025-01-28 03:01] LABS: Creatinine, Point-of-Care* 1.0 mg/dl (0.6-1.3); Troponin, Point-of-Care* 0.00 ng/ml (0.01-0.04)
[2025-01-28 03:52] LABS: Lymphocytes Absolute Auto 1.10 K/uL (0.90-2.90)
[2025-01-28 03:53] LABS: Slide Review Reflex No
[2025-01-28 04:39] LABS: Albumin* 4.3 g/dL (3.3-5.0); Chloride* 108 mmol/L (96-114)
[2025-01-28 04:40] LABS: Potassium* 4.6 mmol/L (3.6-5.1); Sodium* 140 mmol/L (135-149)
[2025-01-28 04:42] LABS: Blood Urea Nitrogen* 19 mg/dL (7-30); Creatinine* 0.9 mg/dL (0.5-1.5); Est. Creatinine Clearance* 32.73; Estimated Glomerular Filt Rate 64 ml/min
[2025-01-28 04:43] LABS: Alkaline Phosphatase* 201 U/L (40-150); Anion Gap 9 mEq/L (7-15); Bilirubin Total* 0.8 mg/dL (0.1-1.5); Calcium* 9.8 mg/dL (8.4-10.6); Carbon Dioxide* 23 mmol/L (20-32); Glucose* 135 mg/dL (60-115); Total Protein* 6.8 g/dL (6.0-8.3)
[2025-01-28 05:19] LABS: Alanine Aminotransferase* 841 U/L (4-35); Aspartate Amino Transferase* 939 U/L (12-35)
[2025-01-28] MEDS: LACTATED RINGERS 1000 ML 1,000 ML 125 ML IV ×2 (06:20→16:56)
[2025-01-28 06:53] LABS: Cholesterol* 168 mg/dL (90-199); HDL Cholesterol* 58 mg/dL (>=50); Triglycerides* 69 mg/dL (40-149)
--- NOTE | 2025-01-28 07:27 | CRLHL7_ITS ---
For Patients: As a result of the Century Cures Act, medical imaging exams and procedure reports are released immediately into your electronic medical record. You may view this report before your referring provider. If you have questions, please contact your health care provider. INDICATION: Elevated LFTs and lipase, questioning pancreatitis COMPARISON: 01/28/2025 and 11/27/2016 CT abdomen pelvis TECHNIQUE: Multiplanar, multisequence MR imaging of the abdomen, without IV contrast. The MRCP protocol was utilized, which includes the 3D reconstructed images the biliary tree. Contrast: None FINDINGS: There is mild diffuse hepatic steatosis. The liver length is 17.5 centimeters, normal. No liver lesions seen. Cholecystectomy. No biliary ductal dilatation. The distal common bile duct measures 5 millimeters. There is no choledocholithiasis or extrinsic compression. Conventional pancreaticobiliary junction anatomy. There is mild diffuse pancreatic edema. Trace peripancreatic fluid, mostly around the tail. Pancreatic duct is not dilated. No pancreatic cyst or mass is identified on this noncontrast examination. Normal spleen. Normal adrenal glands. No renal mass seen. There are some parapelvic renal cysts. No urinary tract dilatation. There is trace peripancreatic fluid but no ascites. No adenopathy. There is a large hiatal hernia that is included best in the field of view on the coronal images. The stomach within the hernia appears to be mildly thick walled. There is a moderate amount of fluid within the hernia sac measuring up to about 10 cm. There is mass effect and atelectasis in the left lower lobe. IMPRESSION: 1. Acute interstitial edematous pancreatitis and trace peripancreatic fluid. 2. Mild diffuse hepatic steatosis. 3. Large hiatal hernia containing almost all of the stomach. There is some mild gastric wall thickening. There is some fluid within the hernia sac. This is not fully included within the field of view. Dictated by Ashley Nunez MD @ 01/28/2025 9:21:57 AM (Electronically Signed)
--- NOTE | 2025-01-28 11:13 | P.IMHP_ITS ---
Assessment and Plan Assessment and plan (1) Acute pancreatitis: Problem comment: MRCP shows acute interstitial edematous pancreatitis and trace peripancreatic fluid Lipase 32,891 AST 939, ALT 841, alk-phos 201, total bili 0.8 CRP 0.5, no leukocytosis Nausea, vomiting resolved, mild abdominal pain Continue IVF, NPO IV PPI Pain and nausea management as needed Trend labs Discussed with General Surgery given significant findings agree with plan Status: Acute (2) Transaminitis: Problem comment: AST 939, ALT 841, alk-phos 201, total bili 0.8 Status: Acute (3) Hypertension: Problem comment: Continue home meds, hold aspirin Status: Acute (4) Elevated cholesterol: Problem comment: Hold statin Lipids 01/28/2025- triglyceride 69, cholesterol 168, LDL 96, HDL 58 Status: Acute (5) Hiatal hernia: Problem comment: CT shows Large hiatal hernia containing the majority of the stomach in the left lower thorax similar to prior exam. Wall thickening of the gastric antrum/pylorus may be inflammatory. There is a trace amount of fluid in the retrocrural region suggesting inflammation Noted on previous imaging Outpatient follow-up Status: Acute (6) Hepatic steatosis: Problem comment: MRCP shows mild diffuse hepatic steatosis Transaminitis AST 939, ALT 841, alk-phos 201, total bili 0.8 Status: Acute Plan Continue IVF, NPO, IV ppi, pain and nausea management. Trend labs. UC pending for mild bacteriuria Total Time Spent Total Time Spent: Today I spent 75 minutes seeing the patient, reviewing Expanse and EPIC notes/diagnostics, discussing the care plan with our care time that includes social work, PT/OT, pharmacy, RT, senior care and documenting my impressions and plan in the medical record. Hospitalist- H&P: HPI History of Present Illness Date Seen: 01/28/25 Chief complaint: Vomiting, stomach pain Narrative: Nicky Mason is a paty 80 year old female past medical history significant for hypertension and hyperlipidemia is admitted to the medical floor from the ED with acute pancreatitis requiring IVF, IV ppi, and monitoring. Patient reports onset of nausea, vomiting and generalized abdominal pain for less than 1 day. Thinks her abdominal pain is more related to her vomiting episodes as it feels sore in that sense. No hematemesis. Last bowel movement was 2 days ago. Has had no fevers. Denies headache or dizziness. Denies chest pain or shortness of breath. No recent bloody stools. In the ED, was found to have a significant pancreatitis with a lipase > 30,000, significant transaminitis, and an MRCP confirming acute pancreatitis without evidence of choledocholithiasis. History of cholecystectomy. Rare alcohol use. Nonsmoker. PCP is Tamiko Lopez PA-C. Patient states she has a healthcare directive or POLST but does not recall code status. Her niece will bring this in. Review of Systems Narrative: REVIEW OF SYSTEMS: Complete review of systems performed and negative unless otherwise stated in HPI or below. Medical Decision Making Medical Decision Making Code Status: Unsure - her niece bring in paperwork Has patient completed a Health Care Directive: Yes During This Stay, Who Would You Like To Make Decisions For You In The Event You Are Unable To Make Them For Yourself?: Her niece [facility] Medical History (Updated 01/28/25 @ 14:45 by Jaqui Maya PA-C) Hiatal hernia ?K44.9 - Diaphragmatic hernia without obstruction or gangrene (ICD-10) Elevated cholesterol ?E78.00 - Pure hypercholesterolemia, unspecified (ICD-10) Osteoarthritis of left knee ?M17.12 - Unilateral primary osteoarthritis, left knee (ICD-10) Skin cancer ?C44.90 - Unspecified malignant neoplasm of skin, unspecified (ICD-10) Depression ?F32.A - Depression, unspecified (ICD-10) Hypertension ?I10 - Essential (primary) hypertension (ICD-10) Surgical History History of cholecystectomy ?Z90.49 - Acquired absence of other specified parts of digestive tract (ICD- 10) History of phacoemulsification of cataract of right eye with intraocular lens implantation (04/14/20) ?Z98.41 - Cataract extraction status, right eye (ICD-10) ?Z96.1 - Presence of intraocular lens (ICD-10) History of phacoemulsification of cataract of left eye with intraocular lens implantation (04/28/20) ?Z98.42 - Cataract extraction status, left eye (ICD-10) ?Z96.1 - Presence of intraocular lens (ICD-10) Social History Smoking Status: Never smoker Second hand tobacco smoke exposure: No How often do you have a drink containing alcohol: never AUDIT-C Alcohol total score: 0 Non-prescribed substance use: denies use Meds Home Medications and Allergies Home Medications ?Medication ?Instructions ?Recorded ?Confirmed ?Type aspirin 81 mg tablet,delayed 81 mg PO DAILY 09/09/23 0 01/28/25 History release olmesartan 40 mg tablet 40 mg PO DAILY 09/09/2301/11 History rosuvastatin 10 mg tablet 10 mg PO HS 09/09/23 5 History famotidine 20 mg tablet (Acid-Pep) 20 mg PO BID 01/28/25 History Allergies Allergy/AdvReac Type Severity Reaction Status Date / Time amlodipine Allergy Mild Cough Verified 11/20/24 10:36 atenolol Allergy Mild Cough Verified 11/20/24 10:36 Exam Narrative: Exam Narrative: PHYSICAL EXAM General: Very pleasant, smiling, conversant, NAD HEENT: Normocephalic, atraumatic, sclera white, EOMI, oral mucosa moist Cardiovascular: RRR, S1S2. No pitting edema Pulmonary: CTA bilaterally without rhonchi, rales, expiratory wheezes. No dyspnea Abdominal: Soft, nondistended, minimal tenderness lower abdomen, no guarding Neurological: Alert, answering questions appropriately, cranial nerves intact, no focal findings Extremities: No gross joint deformity or swelling. AROMI. Neurovascularly intact Skin: Warm, dry. Const: Vital Signs, click to edit/add: Vital Signs - 24 hr 01/28/25 02:21 01/28/25 02:59 01/28/25 03:33 Temperature 97.9 F Pulse Rate 63 62 Pulse Rate [Pulse Oximeter] 88 Respiratory Rate 16 18 18 Blood Pressure 149/76 H 139/72 Blood Pressure [Ri ght Upper Arm] 157/82 H Pulse Oximetry 97 96 94 Oxygen Delivery Me thod Room Air 01/28/25 04:02 01/28/25 04:33 01/28/25 05:02 Temperature 98.0 F Pulse Rate 65 65 71 Pulse Rate [Pulse Oximeter] Respiratory Rate 18 18 18 Blood Pressure 158/78 H 151/76 H 144/78 H Blood Pressure [Ri ght Upper Arm] Pulse Oximetry 93 94 95 Oxygen Delivery Me od 01/28/25 06:02 01/28/25 06:32 01/28/25 06:39 Temperature 98.0 F Pulse Rate 68 66 Pulse Rate [Pulse Oximeter] Respiratory Rate 18 18 Blood Pressure 131/70 125/64 Blood Pressure [Ri ght Upper Arm] Pulse Oximetry 99 95 [facility] 07:02 01/28/25 07:30 01/28/25 07:32 Temperature Pulse Rate 67 67 Pulse Rate [Pulse Oximeter] Respiratory Rate 18 Blood Pressure 131/59 L 136/66 Blood Pressure [Ri ght Upper Arm] Pulse Oximetry 95 98 [facility] 01[facility]/25 09:11 01/28/25 09:12 01/28/25 09:15 Temperature Pulse Rate 71 64 63 Pulse Rate [Pulse Oximeter] Respiratory Rate Blood Pressure 101/60 Blood Pressure [Ri ght Upper Arm] Pulse Oximetry 96 93 95 [facility] 01/[facility]25 09:30 01/28/25 09:45 01/28/25 10:01 Temperature Pulse Rate 62 61 61 Pulse Rate [Pulse Oximeter] Respiratory Rate Blood Pressure Blood Pressure [Ri ght Upper Arm] Pulse Oximetry 95 94 94 [facility] 01/28/25 10:15 01/28/25 10:30 Temperature Pulse Rate 64 63 Pulse Rate [Pulse Oximeter] Respiratory Rate Blood Pressure Blood Pressure [Ri ght Upper Arm] Pulse Oximetry 96 95 Oxygen Delivery Me od Hospitalist - H&P: Result Labs Labs: Short CBC 01/28/25 Range/Units 02:40 WBC 7.80 (4.50-11.00) K/uL Hgb 14.9 (12.0-16.0) gm/dL Hct 45.2 (33.0-51.0) % Plt Count 243 (140-440) K/uL BMP 01/28/25 02:40 Sodium 140 Potassium 4.6 Chloride 108 Carbon Dioxide 23 BUN 19 Creatinine 0.9 Glucose 135 H Calcium 9.8 Liver Function 01/28/25 Range/Units 02:40 Total Bilirubin 0.8 (0.1-1.5) mg/dL AST 939 H (12-35) U/L ALT 841 H (4-35) U/L Alkaline Phosphatase 201 H (40-150) U/L Albumin 4.3 (3.3-5.0) g/dL Urine 01/28/ Range/Units 02:48 Urine Color Yellow (Yellow) Urine Appearance Clear (Clear) Urine pH 6.5 (5.0-8.5) Ur Specific [place] 1.020 (1.000-1.030) Urine Protein 2+ A (Negative) Urine Glucose (UA) Negative (Negative) Imaging CT scan - abdomen: Attestation: I have reviewed the pertinent imaging results. Radiologist's impression: Lower chest: Bibasilar atelectasis or scarring. Few small noncalcified pulmonary nodules in the right middle lobe measuring 3-4 mm (for example series 3 image 2). Only one of these nodules is visualized on the prior exam. Heart size mildly prominent. Liver: Mild diffuse hepatic steatosis. No suspicious masses. Gallbladder and bile ducts: Cholecystectomy. No biliary dilation. Spleen: Unremarkable. Pancreas: Fatty infiltration of the pancreatic head. There may be subtle fat stranding about the pancreatic tail. No dilation of the main pancreatic duct. Adrenal glands: Unremarkable. Kidneys, Ureters, and Bladder: Symmetric enhancement. Small right renal cyst. No hydronephrosis. No obstructing urinary calculi. Underdistended urinary bladder. Reproductive organs: Unremarkable. GI tract/Peritoneum: Partially visualized large hiatal hernia containing the majority of the stomach in the left lower thorax similar to prior exam. There is wall thickening of the gastric antrum/pylorus which may be inflammatory. Trace amount of free fluid in the right retrocrural region. No small bowel dilation. Moderate stool burden. Colonic diverticulosis without evidence of diverticulitis. Negative appendix. No intraperitoneal free air. Vasculature: Abdominal aorta is normal in caliber. Aortoiliac vascular calcifications. Mesenteric arteries appear patent. There is new swirling of the central mesenteric vasculature without current evidence of bowel obstruction or vascular occlusion. Lymph nodes: No lymphadenopathy. Abdominal Wall: Unremarkable. Bones: Left convex lumbar curve. Degenerative changes of the spine. Lower lumbar laminectomy changes. IMPRESSION: 1. Large hiatal hernia containing the majority of the stomach in the left lower thorax similar to prior exam. Wall thickening of the gastric antrum/pylorus may be inflammatory. There is a trace amount of fluid in the retrocrural region suggesting inflammation. This could be further evaluated with endoscopy. 2. New swirling of the central mesenteric vasculature without current evidence of bowel obstruction or vascular occlusion. 3. Questionable subtle fat stranding about the pancreatic tail. Correlate with serum amylase and lipase to exclude pancreatitis. 4. Noncalcified pulmonary nodules in the right middle lobe measuring 3-4 mm. Follow-up per Fleischner society guidelines. MRCP: Attestation: I have reviewed the pertinent imaging results. Radiologist's impression: There is mild diffuse hepatic steatosis. The liver length is 17.5 centimeters, normal. No liver lesions seen. Cholecystectomy. No biliary ductal dilatation. The distal common bile duct measures 5 millimeters. There is no choledocholithiasis or extrinsic compression. Conventional pancreaticobiliary junction anatomy. There is mild diffuse pancreatic edema. Trace peripancreatic fluid, mostly around the tail. Pancreatic duct is not dilated. No pancreatic cyst or mass is identified on this noncontrast examination. Normal spleen. Normal adrenal glands. No renal mass seen. There are some parapelvic renal cysts. No urinary tract dilatation. There is trace peripancreatic fluid but no ascites. No adenopathy. There is a large hiatal hernia that is included best in the field of view on the coronal images. The stomach within the hernia appears to be mildly thick walled. There is a moderate amount of fluid within the hernia sac measuring up to about 10 cm. There is mass effect and atelectasis in the left lower lobe. IMPRESSION: 1. Acute interstitial edematous pancreatitis and trace peripancreatic fluid. 2. Mild diffuse hepatic steatosis. 3. Large hiatal hernia containing almost all of the stomach. There is some mild gastric wall thickening. There is some fluid within the hernia sac. This is not fully included within the field of view.
--- NOTE | 2025-01-28 18:37 | PC.NURSE ---
Pt is pleasant to care for, doing very well today. A&Ox4. VSS. Afebrile. Denies pain. Denies nausea. Tolerating ambulation independently in room. Pt is NPO. Resting well in her chair at this time.
[2025-01-28] MEDS: ENOXAPARIN 40 MG/0.4 ML INJ SUBCUT (21:02)
[2025-01-29] MEDS: LACTATED RINGERS 1000 ML 1,000 ML 125 ML IV ×2 (00:59→09:17)
[2025-01-29 03:00] VITALS: BP 141/69; PULSE 69; RESP 16; TEMP 37.2; O2SAT 94
[2025-01-29 06:19] LABS: Hematocrit 40.2 % (33.0-51.0); Hemoglobin* 13.0 gm/dL (12.0-16.0); Mean Corpuscular HGB Conc 32 gm/dL (32-36); Mean Corpuscular Hemoglobin 27 pg (26-34); Mean Corpuscular Volume 84 fL (80-100); Red Blood Count 4.79 m/uL (4.00-5.20); White Blood Count* 7.71 K/uL (4.50-11.00)
--- NOTE | 2025-01-29 06:19 | PC.NURSE ---
End of shift [id number]: Pt AxOx4, cooperative, and pleasant with cares. Remaining afebrile. Denies pain and nausea. Ambulating in room independently, no safety concerns. Pt resting in chair with call light in reach.
[2025-01-29 06:31] LABS: Slide Review Reflex No
[2025-01-29 06:38] LABS: Albumin* 3.4 g/dL (3.3-5.0); Chloride* 107 mmol/L (96-114)
[2025-01-29 06:39] LABS: Potassium* 3.9 mmol/L (3.6-5.1); Sodium* 138 mmol/L (135-149)
[2025-01-29 06:41] LABS: Alanine Aminotransferase* 379 U/L (4-35); Alkaline Phosphatase* 135 U/L (40-150); Anion Gap 5 mEq/L (7-15); Aspartate Amino Transferase* 198 U/L (12-35); Bilirubin Total* 1.0 mg/dL (0.1-1.5); Blood Urea Nitrogen* 16 mg/dL (7-30); Carbon Dioxide* 26 mmol/L (20-32); Creatinine* 0.8 mg/dL (0.5-1.5); Est. Creatinine Clearance* 32.73; Estimated Glomerular Filt Rate 74 ml/min
[2025-01-29 06:42] LABS: Calcium* 9.1 mg/dL (8.4-10.6); Glucose* 79 mg/dL (60-115); Total Protein* 5.7 g/dL (6.0-8.3)
[2025-01-29 07:00] VITALS: PULSE 67; RESP 16
[2025-01-29] MEDS: PANTOPRAZOLE SODIUM 40 MG INJ IVP (09:16)
[2025-01-29] MEDS: SODIUM CHLORIDE 0.9 % (FLUSH) 10 ML SYRINGE 5 ML IVF (09:18)
[2025-01-29 09:19] VITALS: BP 146/64; PULSE 67; RESP 16; TEMP 36.4; O2SAT 93
[2025-01-29] MEDS: OLMESARTAN MEDOXOMIL 20 MG TABLET 40 MG PO (10:31)
[2025-01-29 11:26] VITALS: BP 140/57; PULSE 63; RESP 16; TEMP 36.3; O2SAT 95
--- NOTE | 2025-01-29 14:37 | PC.NURSE ---
Pt is doing well today. Pleasant to care for. VSS. Denies pain and nausea. A&Ox4. Pt tolerating a full liquid diet. Ambulating in room independently. Resting well at this time.
--- NOTE | 2025-01-29 14:55 | PM.DS1 ---
DS: Providers Provider Time Seen by Provider: 10:31 Date Seen: 01/29/25 Date of admission: 01/28/25 10:41 Primary care physician: Tamiko Mejia PA-C Admitting Clinician: Beata Cortes MD Attending Physician on discharge: Elle Diaz MD Date of Discharge: 01/29/25 DS: Diagnosis Discharge Diagnosis (1) Acute pancreatitis: Status: Acute Problem details: MRCP shows acute interstitial edematous pancreatitis and trace peripancreatic fluid Lipase 32,891 AST 939, ALT 841, alk-phos 201, total bili 0.8 CRP 0.5, no leukocytosis Nausea, vomiting resolved, mild abdominal pain Continue IVF, NPO IV PPI Pain and nausea management as needed Trend labs Discussed with General Surgery given significant findings agree with plan - 01/29 Nausea, vomiting and pain have resolved. Labs improving. Tolerated Full Liq diet today. Desires discharge. Cause uncertain, suspect retained gallstone/sludge. Denies alcohol use, TG wnl, GB removed years ago. (2) Transaminitis: Status: Acute Problem details: AST 939, ALT 841, alk-phos 201, total bili 0.8 - 01/29 labs improving. Hold statin for 5-7 days, then resume. (3) Hepatic steatosis: Status: Acute Problem details: MRCP shows mild diffuse hepatic steatosis Transaminitis AST 939, ALT 841, alk-phos 201, total bili 0.8 (4) Hiatal hernia: Status: Acute Problem details: CT shows Large hiatal hernia containing the majority of the stomach in the left lower thorax similar to prior exam. Wall thickening of the gastric antrum/pylorus may be inflammatory. There is a trace amount of fluid in the retrocrural region suggesting inflammation Noted on previous imaging Outpatient follow-up (5) Elevated cholesterol: Status: Acute Problem details: Hold statin Lipids 01/28/2025- triglyceride 69, cholesterol 168, LDL 96, HDL 58 (6) Hypertension: Status: Acute Problem details: Continue home meds (7) Pulmonary nodules: Status: Acute Problem details: 01/28/25: Noncalcified pulmonary nodules in the right middle lobe measuring 3-4 mm. Follow-up per Fleischner society guidelines. Never smoker. DS: Summary Hospital Course Hospital Course: Per H&P: Nicky Mason is a paty 80 year old female past medical history significant for hypertension and hyperlipidemia is admitted to the medical floor from the ED with acute pancreatitis requiring IVF, IV ppi, and monitoring. Patient reports onset of nausea, vomiting and generalized abdominal pain for less than 1 day. Thinks her abdominal pain is more related to her vomiting episodes as it feels sore in that sense. No hematemesis. Last bowel movement was 2 days ago. Has had no fevers. Denies headache or dizziness. Denies chest pain or shortness of breath. No recent bloody stools. In the ED, was found to have a significant pancreatitis with a lipase > 30,000, significant transaminitis, and an MRCP confirming acute pancreatitis without evidence of choledocholithiasis. History of cholecystectomy. Rare alcohol use. 01/29 Nausea, vomiting and pain have resolved. Labs improving. Tolerated Full Liq diet today. Desires discharge. See above for full details. F/u with PCP. Time Spent with Patient Time attestation: Total time spent providing and/or coordinating discharge services: Exam Narrative: Exam Narrative: General: No acute distress. Awake, alert, oriented x3. No pallor. No jaundice. Oropharynx: Clear. Mucous membranes moist. Cardiovascular: Regular rate and rhythm. No murmurs, gallops, or rubs. Respiratory: Clear to auscultation bilaterally. No wheezes or crackles. Abdomen: Bowel sounds present. Soft, nondistended, nontender. Extremities: No lower extremity edema. Const: Vital Signs, click to edit/add: Vital Signs - 24 hr 01/28/25 15:00 01/28/25 15:00 01/28/25 19:00 Temperature 97.8 F 97.7 F Pulse Rate [Pulse Oximeter] 79 Respiratory Rate 18 16 16 Blood Pressure [Ri ght Arm] 126/67 140/60 H Pulse Oximetry 97 97 Oxygen Delivery Me thod Room Air Room Air 01/28/25 22:56 01/29/25 03:00 01/29/25 07:00 Temperature 98 F 99 F Pulse Rate [Pulse Oximeter] 60 69 67 Respiratory Rate 16 16 16 Blood Pressure [Ri ght Arm] 146/69 H 141/69 H Pulse Oximetry 98 94 Oxygen Delivery Me thod Room Air Room Air 01/29/25 09:19 01/29/25 11:26 Temperature 97.6 F 97.4 F L Pulse Rate [Pulse Oximeter] 67 63 Respiratory Rate 16 16 Blood Pressure [Ri ght Arm] 146/64 H 140/57 H Pulse Oximetry 93 95 Oxygen Delivery Me thod Room Air Room Air DS: Data Data Completed and Pending Completed studies during hospitalization: 01/28/2025 EKG: Normal sinus rhythm, 63 beats per minute, low-voltage QRS, cannot rule out anterior infarct, age undetermined. Ordering Physician: Sandhya Payton M.D. Date of Service: 01/28/25 Procedure(s): CT abdomen pelvis w con Accession Number(s): [id number] cc: Tamiko Mejia PA-C; Sandhya Payton M.D.~ For Patients: As a result of the Cures Act, medical imaging exams and procedure reports are released immediately into your electronic medical record. You may view this report before your referring provider. If you have questions, please contact your health care provider. INDICATION: Mid abdominal pain, hyperactive bowel sounds. TECHNIQUE: CT of the abdomen and pelvis acquired with 84 cc Isovue 370 IV contrast. Coronal and sagittal reconstructions. COMPARISON: None. FINDINGS: Lower chest: Bibasilar atelectasis or scarring. Few small noncalcified pulmonary nodules in the right middle lobe measuring 3-4 mm (for example series 3 image 2). Only one of these nodules is visualized on the prior exam. Heart size mildly prominent. Liver: Mild diffuse hepatic steatosis. No suspicious masses. Gallbladder and bile ducts: Cholecystectomy. No biliary dilation. Spleen: Unremarkable. Pancreas: Fatty infiltration of the pancreatic head. There may be subtle fat stranding about the pancreatic tail. No dilation of the main pancreatic duct. Adrenal glands: Unremarkable. Kidneys, Ureters, and Bladder: Symmetric enhancement. Small right renal cyst. No hydronephrosis. No obstructing urinary calculi. Underdistended urinary bladder. Reproductive organs: Unremarkable. GI tract/Peritoneum: Partially visualized large hiatal hernia containing the majority of the stomach in the left lower thorax similar to prior exam. There is wall thickening of the gastric antrum/pylorus which may be inflammatory. Trace amount of free fluid in the right retrocrural region. No small bowel dilation. Moderate stool burden. Colonic diverticulosis without evidence of diverticulitis. Negative appendix. No intraperitoneal free air. Vasculature: Abdominal aorta is normal in caliber. Aortoiliac vascular calcifications. Mesenteric arteries appear patent. There is new swirling of the central mesenteric vasculature without current evidence of bowel obstruction or vascular occlusion. Lymph nodes: No lymphadenopathy. Abdominal Wall: Unremarkable. Bones: Left convex lumbar curve. Degenerative changes of the spine. Lower lumbar laminectomy changes. IMPRESSION: 1. Large hiatal hernia containing the majority of the stomach in the left lower thorax similar to prior exam. Wall thickening of the gastric antrum/pylorus may be inflammatory. There is a trace amount of fluid in the retrocrural region suggesting inflammation. This could be further evaluated with endoscopy. 2. New swirling of the central mesenteric vasculature without current evidence of bowel obstruction or vascular occlusion. 3. Questionable subtle fat stranding about the pancreatic tail. Correlate with serum amylase and lipase to exclude pancreatitis. 4. Noncalcified pulmonary nodules in the right middle lobe measuring 3-4 mm. Follow-up per Fleischner society guidelines. Please note that all CT scans at this facility use dose modulation, iterative reconstruction, and/or weight-based dosing when appropriate to reduce radiation dose to as low as reasonably achievable. Dictated by Antonia Sneed MD @ 01/28/2025 4:10:57 AM (Electronically Signed) Ordering Physician: Jaqui MCCLAIN Date of Service: 01/28/25 Procedure(s): MR abdomen wo con Accession Number(s): [id number] cc: Tamiko Mejia PA-C; Jaqui MCCLAIN~ For Patients: As a result of the Century Cures Act, medical imaging exams and procedure reports are released immediately into your electronic medical record. You may view this report before your referring provider. If you have questions, please contact your health care provider. INDICATION: Elevated LFTs and lipase, questioning pancreatitis COMPARISON: 01/28/2025 and 11/27/2016 CT abdomen pelvis TECHNIQUE: Multiplanar, multisequence MR imaging of the abdomen, without IV contrast. The MRCP protocol was utilized, which includes the 3D reconstructed images the biliary tree. Contrast: None FINDINGS: There is mild diffuse hepatic steatosis. The liver length is 17.5 centimeters, normal. No liver lesions seen. Cholecystectomy. No biliary ductal dilatation. The distal common bile duct measures 5 millimeters. There is no choledocholithiasis or extrinsic compression. Conventional pancreaticobiliary junction anatomy. There is mild diffuse pancreatic edema. Trace peripancreatic fluid, mostly around the tail. Pancreatic duct is not dilated. No pancreatic cyst or mass is identified on this noncontrast examination. Normal spleen. Normal adrenal glands. No renal mass seen. There are some parapelvic renal cysts. No urinary tract dilatation. There is trace peripancreatic fluid but no ascites. No adenopathy. There is a large hiatal hernia that is included best in the field of view on the coronal images. The stomach within the hernia appears to be mildly thick walled. There is a moderate amount of fluid within the hernia sac measuring up to about 10 cm. There is mass effect and atelectasis in the left lower lobe. IMPRESSION: 1. Acute interstitial edematous pancreatitis and trace peripancreatic fluid. 2. Mild diffuse hepatic steatosis. 3. Large hiatal hernia containing almost all of the stomach. There is some mild gastric wall thickening. There is some fluid within the hernia sac. This is not fully included within the field of view. Dictated by Ashley Nunez MD @ 01/28/2025 9:21:57 AM (Electronically Signed) Labs on day of discharge: Labs from last 24 hours 01/29/25 06:00 WBC 7.71 RBC 4.79 Hgb 13.0 Hct 40.2 MCV 84 MCH 27 MCHC 32 Plt Count 203 Sodium 138 Potassium 3.9 Chloride 107 Carbon Dioxide 26 Anion Gap 5 L BUN 16 Creatinine 0.8 Estimated Creat Clear 32.73 Estimated GFR 74 Glucose 79 Calcium 9.1 Total Bilirubin 1.0 AST 198 H ALT 379 H Alkaline Phosphatase 135 Total Protein 5.7 L Albumin 3.4 Lipase 812 H Preliminary micro results at discharge 01/28/25 02:48 Urine Culture - Preliminary Urine,Clean Catch No growth. Discharge Plan Discharge Disposition: Home, Self-Care Date of Admission: 01/28/25 10:41 Attending Provider on Discharge: Elle Diaz Primary Care Provider: Tamiko Mejia Condition: Improved Anticipated Discharge Date/Time: 01/29/25 15:05 Discharge Medications: Continued olmesartan 40 mg tablet 40 mg PO DAILY aspirin 81 mg tablet,delayed release (DR/EC) 81 mg PO DAILY famotidine [Acid-Pep] 20 mg tablet 20 mg PO BID Held rosuvastatin 10 mg tablet 10 mg PO HS Hold Instructions: Resume on 02/02/25. Discharge Orders: Discharge Order (Routine); Ordered 01/29/25 Ordered By: Elle Diaz Activity Level: No Restrictions Discharge Diet: Regular Follow Up Appointments: Tamiko Mejia, PAZita [Primary Care Provider, Family Practice] Referral Note: 5-7 days Forms: MyHealth Info Instructions
--- NOTE | 2025-01-29 17:38 | PC.NURSE ---
Discharge: Patient discharged to home at 1630 accompanied by friend. IV removed tip intact. discharge instructions given and signed, belongings sheet signed.
== END 2025-01-29 16:10 | disposition home or self-care (01) | DRG 440 ==
LOC: ED 08:45 → MEDSURG 10:41
PROVIDERS: Physician Assistant; Admitting Provider Family Medicine; Emergency Provider Family Medicine; PCP Physician Assistant Medical; Visit Provider Family Medicine
DX: K85.90 Acute pancreatitis without necrosis or infection, unspecified (principal); R74.01 Elevation of levels of liver transaminase levels; K76.0 Fatty (change of) liver, not elsewhere classified; E78.00 Pure hypercholesterolemia, unspecified; I10 Essential (primary) hypertension; R91.8 Other nonspecific abnormal finding of lung field; K44.9 Diaphragmatic hernia without obstruction or gangrene; Z79.82 Long term (current) use of aspirin; E78.5 Hyperlipidemia, unspecified; F32.A Depression, unspecified
CPT/HCPCS: 36415; 74177; 74181; 80053; 80061; 81001; 81003; 82565; 83605; 83690; 84484; 85025; 85027; 86140; 87086; 93005; 94761; 99284; 99285; J1650; J2405; J2470; J7030; J7120; Q9967